=== PATIENT | female | born 1995 | race Caucasian/White ===

== ENCOUNTER 2016-08-05 21:57 | Emergency (ER) | payer OTHER ==
[~2016-08-05] VITALS: Ht 160 cm; Wt 47.0 kg
[~2016-08-05 21:57] MED LIST: IBUP800 PO; PRENCAP6 PO; SENN1TAB11 PO; SPRI28TA PO
[2016-08-05 22:00] VITALS: BP 137/78; PULSE 87; RESP 16; TEMP 98.8; O2SAT 96
[2016-08-05] MEDS ORDERED: PROCHCT RECTAL (23:42)
[2016-08-05] MEDS ORDERED: HYDR2.5%T RECTAL (23:42)
--- NOTE | 2016-08-05 23:47 | PD ---
HPI Chief Complaint: Skin Problem Time Seen by Provider: 23:42 Travel History International Travel<30 days: No Contact w/Intl Traveler<30days: No Traveled to known affect area: No History of Present Illness HPI 21-year-old white female presents to emergency department with complains of hemorrhoids for the past 3 days. She states that she had developed hemorrhoids after her last child. She states they have not followed her up until recently. She's noticed some increasing pain and swelling by her anus. She states that is burning and itching. Worse when she stands and walks. She denies any fever or chills. No nausea vomiting. No abdominal pain or diarrhea. No dysuria or frequency. No vaginal complaints. Symptoms are moderate. Worse with standing and walking. PFSH Past Medical History Cardiovascular Problems: Yes (MURMUR) Tetanus Vaccination: < 5 Years ?: Not LMP: 07/09/16 Past Surgical History Surgical History: No Previous Surgery Social History Alcohol Use: No Tobacco Use: Yes Allergies-Medications (Allergen,Severity, Reaction): Coded Allergies: No Known Allergies (Unverified , 08/05/16) Reported Meds & Prescriptions Reported Meds & Active Scripts Active Anusol-Hc Rectal (Hydrocortisone Rectal) 2.5% Cream 1 Applic RECTAL Q4-6H Proctofoam Hc Rectal (Hydrocortisone/Pramoxine) 1-1% Foam 1 Applic RECTAL Q8H 7 Days Review of Systems Except as stated in HPI: all other systems reviewed are Neg Physical Exam Narrative GENERAL: This is a well-nourished, well-developed patient, in no apparent distress. The patient's examined with Valeri the nurse present. SKIN: No rashes, ecchymoses or lesions. Warm and dry. HEAD: Atraumatic. Normocephalic. EYES: PERRL, EOMI, no discharge or injection. No scleral icterus. EARS: Clear NOSE: Nasal turbinates appear normal. THROAT: Mucosa pink and moist. Airway patent. NECK: Trachea midline. supple, moves head freely. LUNGS: Clear to auscultation. CV: Regular in rhythm. ABDOMEN: Soft nontender. EXT: No clubbing cyanosis or edema. Rectal: The patient has a hemorrhoid at the 1:00 hour of the anus. It is tender , bluish flesh-colored. It does not appear to be greatly thrombosed at this time. Mildly tender to touch. No abscess. Data Data Last Documented VS Vital Signs Date Time Temp Pulse Resp B/P Pulse Ox O2 Delivery O2 Flow Rate FiO2 08/05/16 22:00 98.8 87 16 137/78 96 Room Air MDM Medical Decision Making Medical Screen Exam Complete: Yes Emergency Medical Condition: Yes Medical Record Reviewed: Yes Differential Diagnosis Differential diagnoses: Hemorrhoids, abscess, fistula Narrative Course Patient has a enlarged hemorrhoid. Diagnosis Primary Impression: Hemorrhoid Patient Instructions: General Instructions Departure Forms: Tests/Procedures, Work Release Special Instructions: No work 2-3 days. Additional Instructions: Rest. Sits baths 3 times daily. Procto-foam and Anusol. 3 Advil every 8 hours. Follow-up with a primary care doctor in 1 week. Follow-up with a colorectal doctor in one week. Return to the ER for emergencies. Med/Other Pt SpecificInfo: Prescription(s) given Scripts Hydrocortisone Rectal (Anusol-Hc Rectal)2.5% Cream1 Applic RECTAL Q4-6H #30 GM Ref 0 Prov:Alisia Rome MD 08/05/16 Hydrocortisone-Pramoxine Rectal (Proctofoam Hc Rectal)1-1% Foam1 Applic RECTAL Q8H 7 Days Ref 0 Prov:Alisia Rome MD 08/05/16 Disposition: 01 DISCHARGE HOME Condition: Stable Tab Adams Aug 05, 2016 23:47
== END 2016-08-06 00:15 | disposition home or self-care (01) ==
LOC: NEPB 21:57
DX: K64.9 Unspecified hemorrhoids (principal); Z72.0 Tobacco use
CPT/HCPCS: 99282